=== PATIENT | male | born 1930 | race Caucasian/White ===

== ENCOUNTER 2018-06-24 12:38 | Emergency (ER) | payer MEDICARE, BC ==
[~2018-06-24] VITALS: Ht 180.3 cm; Wt 86.2 kg
[~2018-06-24 12:38] MED LIST: ASPI81CH PO; ATOR10; ATOR10 PO; Aspirin EC81 MG PO; CLOP75; CLOP75 PO; DILT120ERA PO; DILT30 PO; Diltiazem ER240 M1 PO; HYDCHL12.5 PO; INDO25 PO; LANS15EC; LANS15EC PO; LANS30EC PO; LISI10; LISI5 PO; MELO7.5 PO; METO25ER PO; PRAV20 PO; Pravachol40 MG PO; TAMS.4ER PO; TIMO.5OPSO BOTHEYES; TIMOPTIC 0.25%1 EACH BOTHEYES
[2018-06-24] MEDS ORDERED: LANS30EC PO (12:54)
[2018-06-24 13:02] LABS: BASOPHILS ABSOLUTE AUTO 0.03 K/mm3 (0.00-0.23); BASOPHILS PERCENT AUTO 0 % (0-2); EOSINOPHILS ABSOLUTE AUTO 0.26 K/mm3 (0.00-0.68); EOSINOPHILS PERCENT AUTO 3 % (0-6); Hemoglobin 12.4 g/dL (13.5-17.5); IMMATURE GRAN ABSOLUTE AUTO 0.02 K/mm3 (0.00-0.10); IMMATURE GRAN PERCENT AUTO 0 % (0-1); LYMPHOCYTES ABSOLUTE AUTO 3.44 K/mm3 (0.84-5.20); LYMPHOCYTES PERCENT AUTO 42 % (21-46); MONOCYTES ABSOLUTE AUTO 0.87 K/mm3 (0.16-1.47); MONOCYTES PERCENT AUTO 11 % (4-13); Mean Corpuscular HGB 28.1 pg (26.0-34.0); Mean Corpuscular HGB Conc 32.6 g/dL (31.5-36.5); Mean Corpuscular Volume 86 fL (80-100); Mean Platelet Volume 10.2 fL (9.1-12.4); NEUTROPHILS ABSOLUTE AUTO 3.65 K/mm3 (1.96-9.15); NEUTROPHILS PERCENT AUTO 44 % (41-73); Platelet Count 220 K/mm3 (150-400); RDW Coefficient Variation 16.7 % (11.7-14.2); Red Blood Cell Count 4.41 M/mm3 (4.30-5.90); White Blood Cell Count 8.27 K/mm3 (4.00-11.30)
[2018-06-24] MEDS ORDERED: DOXE10 PO (13:15)
[2018-06-24 13:24] LABS: Alanine Aminotransfer (ALT/SGP 26 U/L (12-78); Albumin, Blood 3.5 g/dL (3.4-5.0); Albumin/Globulin Ratio 0.9 (0.8-1.8); Alk Phos 85 U/L (50-136); Anion Gap 7 mmol/L (6-16); Aspartate Aminotrans (AST/SGOT 22 U/L (12-37); Bilirubin, Total 0.4 mg/dL (0.1-1.0); Blood Urea Nitrogen 18 mg/dL (8-24); Bun/Creatinine Ratio 13.2 (12.0-20.0); CO2, Blood 30 mmol/L (21-32); Calcium, Blood 8.7 mg/dL (8.5-10.1); Chloride, Blood 102 mmol/L (98-108); Creatinine, Blood 1.36 mg/dL (0.60-1.20); Glomerular Filtration Rate 53 (60-); Glucose, Blood 123 mg/dL (70-99); Potassium, Blood 3.6 mmol/L (3.5-5.5); Sodium, Blood 139 mmol/L (136-145); Total Protein, Blood 7.5 g/dL (6.4-8.2); Troponin I <0.015 ng/mL (0.000-0.040)
[2018-06-24 14:00] LABS: Source, Urine Clean Catch
[2018-06-24 14:12] LABS: Appearance, Urine Clear (Clear); Bilirubin, Urine Neg (Neg); Blood, Urine Neg (Neg); Color, Urine Yellow (P-Yellow); Glucose Qualitative, Urine Neg (Neg); Ketones, Urine Neg (Neg); Leukocyte Esterase, Urine Neg (Neg); Nitrite, Urine Neg (Neg); Protein, Urine Neg (Neg); Urobilinogen, Urine NORM (Normal); pH, Urine 6.5 (5.0-8.0)
== END 2018-06-24 15:44 | disposition home or self-care (01) ==
LOC: ER 12:38
PROVIDERS: Emergency Medicine
DX: E86.0 Dehydration (principal); R53.83 Other fatigue; I10 Essential (primary) hypertension; E78.5 Hyperlipidemia, unspecified; Z88.8 Allergy status to other drugs, medicaments and biological substances; Z91.018 Allergy to other foods; Z79.899 Other long term (current) drug therapy; Z79.01 Long term (current) use of anticoagulants; Z79.82 Long term (current) use of aspirin; Z86.73 Personal history of transient ischemic attack (TIA), and cerebral infarction without residual deficits; Z87.891 Personal history of nicotine dependence
CPT/HCPCS: 71046; 80053; 81003; 83690; 84484; 85025; 96360; 99285-25; J7030

== ENCOUNTER 2018-12-10 15:13 | Emergency (ER) | payer MEDICARE, BC ==
[~2018-12-10] VITALS: Ht 180.3 cm; Wt 83.9 kg
[~2018-12-10 15:13] MED LIST changes: +DOXE10 PO
[2018-12-10 16:17] LABS: BASOPHILS ABSOLUTE AUTO 0.03 K/mm3 (0.00-0.23); BASOPHILS PERCENT AUTO 0 % (0-2); EOSINOPHILS ABSOLUTE AUTO 0.17 K/mm3 (0.00-0.68); EOSINOPHILS PERCENT AUTO 2 % (0-6); Hematocrit 39.9 % (37.0-53.0); Hemoglobin 13.3 g/dL (13.5-17.5); IMMATURE GRAN ABSOLUTE AUTO 0.03 K/mm3 (0.00-0.10); IMMATURE GRAN PERCENT AUTO 0 % (0-1); LYMPHOCYTES ABSOLUTE AUTO 3.22 K/mm3 (0.84-5.20); LYMPHOCYTES PERCENT AUTO 35 % (21-46); MONOCYTES ABSOLUTE AUTO 0.99 K/mm3 (0.16-1.47); MONOCYTES PERCENT AUTO 11 % (4-13); Mean Corpuscular HGB 31.3 pg (26.0-34.0); Mean Corpuscular HGB Conc 33.3 g/dL (31.5-36.5); Mean Corpuscular Volume 94 fL (80-100); Mean Platelet Volume 10.4 fL (9.1-12.4); NEUTROPHILS ABSOLUTE AUTO 4.83 K/mm3 (1.96-9.15); NEUTROPHILS PERCENT AUTO 52 % (41-73); Platelet Count 216 K/mm3 (150-400); RDW Coefficient Variation 14.7 % (11.7-14.2); RDW Standard Deviation 50.3 fL (35.1-46.3); Red Blood Cell Count 4.25 M/mm3 (4.30-5.90); White Blood Cell Count 9.27 K/mm3 (4.00-11.30)
[2018-12-10 16:28] LABS: Source, Urine Clean Catch
[2018-12-10 16:30] LABS: Appearance, Urine Clear (Clear); Bilirubin, Urine Neg (Neg); Blood, Urine Neg (Neg); Color, Urine Yellow (P-Yellow); Glucose Qualitative, Urine Neg (Neg); Ketones, Urine Neg (Neg); Leukocyte Esterase, Urine Neg (Neg); Nitrite, Urine Neg (Neg); Protein, Urine Neg (Neg); Urobilinogen, Urine NORM (Normal); pH, Urine 6.5 (5.0-8.0)
[2018-12-10 16:35] LABS: Alanine Aminotransfer (ALT/SGP 25 U/L (12-78); Albumin, Blood 3.5 g/dL (3.4-5.0); Albumin/Globulin Ratio 0.9 (0.8-1.8); Alk Phos 81 U/L (50-136); Anion Gap 4 mmol/L (6-16); Aspartate Aminotrans (AST/SGOT 16 U/L (12-37); Bilirubin, Total 0.3 mg/dL (0.1-1.0); Blood Urea Nitrogen 19 mg/dL (8-24); Bun/Creatinine Ratio 14.7 (12.0-20.0); CO2, Blood 33 mmol/L (21-32); Calcium, Blood 8.8 mg/dL (8.5-10.1); Chloride, Blood 99 mmol/L (98-108); Creatinine, Blood 1.29 mg/dL (0.60-1.20); Glomerular Filtration Rate 56 (60-); Glucose, Blood 132 mg/dL (70-99); Potassium, Blood 3.5 mmol/L (3.5-5.5); Sodium, Blood 136 mmol/L (136-145); Total Protein, Blood 7.5 g/dL (6.4-8.2); Troponin I <0.015 ng/mL (0.000-0.040)
[2018-12-10 16:36] LABS: International Normalized Ratio 0.98; Prothrombin Time Results 10.4 Sec (9.7-11.5)
== END 2018-12-10 18:50 | disposition home or self-care (01) ==
LOC: ER 15:13
PROVIDERS: Emergency Medicine
DX: R53.1 Weakness (principal); I10 Essential (primary) hypertension; E78.5 Hyperlipidemia, unspecified; Z79.899 Other long term (current) drug therapy
CPT/HCPCS: 36415; 70450; 71046; 80053; 81003; 84484; 85025; 85610; 93005; 93010; 99285-25

== ENCOUNTER 2019-05-02 16:35 | Emergency (ER) | payer MEDICARE, BC ==
[~2019-05-02] VITALS: Ht 180.3 cm; Wt 77.1 kg
[2019-05-02] MEDS ORDERED: Pravachol40 MG (17:03)
[2019-05-02] MEDS ORDERED: LEVOCETIRIZINE D5 MG PO (17:03)
[2019-05-02] MEDS ORDERED: TRAZODONE TAB 50M (17:03)
[2019-05-02] MEDS ORDERED: Cyproheptadine H4 MG PO (17:03)
[2019-05-02] MEDS ORDERED: CLOPIDOGREL TAB 75M (17:03)
[2019-05-02] MEDS ORDERED: TERBINAFINE TAB 250 (17:03)
[2019-05-02] MEDS ORDERED: DOXE25 PO (17:03)
[2019-05-02] MEDS ORDERED: TRIDERM28.4 GM (17:03)
[2019-05-02] MEDS ORDERED: Aspirin EC81 MG PO (17:04)
[2019-05-02] MEDS ORDERED: CLOP75 PO (17:04)
[2019-05-02] MEDS ORDERED: Flomax0.4 MG PO (17:12)
[2019-05-02] MEDS ORDERED: DONE10 PO (17:12)
[2019-05-02] MEDS ORDERED: LOSA25 PO (17:13)
[2019-05-02] MEDS ORDERED: HYDCHL12.5 PO (17:13)
[2019-05-02] MEDS ORDERED: MELA3 PO (17:13)
[2019-05-02] MEDS ORDERED: MIRALAX17 GM PO (17:14)
[2019-05-02] MEDS ORDERED: PANT40 PO (17:14)
[2019-05-02] MEDS ORDERED: Pravachol40 MG PO (17:14)
[2019-05-02] MEDS ORDERED: TIMO.25OPS BOTHEYES (17:15)
[2019-05-02] MEDS ORDERED: TRAZ50 PO (17:15)
[2019-05-02] MEDS ORDERED: FERSU300 PO (17:16)
[2019-05-02] MEDS ORDERED: GABA100 PO (17:16)
[2019-05-02] MEDS ORDERED: ACET325 PO (17:17)
[2019-05-02] MEDS ORDERED: DOCU100 PO (17:17)
[2019-05-02] MEDS ORDERED: CHLO25A PO (17:17)
[2019-05-02] MEDS ORDERED: Seroquel25 MG PO (17:22)
[2019-05-02] MEDS ORDERED: SENN187 PO (17:23)
== END 2019-05-02 17:55 | disposition home or self-care (01) ==
LOC: ER 16:35
DX: R53.1 Weakness (principal); I10 Essential (primary) hypertension; E78.5 Hyperlipidemia, unspecified; Z88.1 Allergy status to other antibiotic agents; Z88.8 Allergy status to other drugs, medicaments and biological substances; Z79.899 Other long term (current) drug therapy; Z86.73 Personal history of transient ischemic attack (TIA), and cerebral infarction without residual deficits; Z79.82 Long term (current) use of aspirin
CPT/HCPCS: 99284